=== PATIENT | female | born 1950 | race Caucasian/White ===

== ENCOUNTER 2024-05-30 12:03 | Observation (INO) | payer MEDICARE, BC ==
[~2024-05-30] VITALS: Ht 152.4 cm; Wt 92.0 kg
[2024-05-30] VITALS (33 sets, daily range): BP systolic 84–134; BP diastolic 49–108
[2024-05-30 13:05] LABS: URINE BLOOD DIPSTICK Small (NEGATIVE); URINE GLUCOSE - DIPSTICK Negative (NEGATIVE); URINE KETONE Trace mg/dL (NEGATIVE); URINE NITRITE - DIPSTICK Negative (Negative); URINE PROTEIN - DIPSTICK 100 mg/dL (NEG-TRACE)
[2024-05-30 13:20] LABS: URINE COLOR Yellow; URINE LEUK ESTERASE Moderate (NEGATIVE)
[2024-05-30 13:21] LABS: URINE BACTERIA MODERATE hpf; URINE SQUAMOUS EPITHELIAL CELL FEW EPI/hpf (0-FEW); URINE WBC 50-100 WBC/hpf (0-5)
[2024-05-30] MEDS ORDERED: SODIUM CHLORIDE 0.9% 1,000 ML IV ONE (13:35)
--- NOTE | 2024-05-30 13:44 | NUR ---
Reassessment of patient completed. No distress noted.
[2024-05-30] MEDS ORDERED: ISOVUE-300 (Iopamidol) 100 ML SDV IV ONE (14:05)
[2024-05-30] MEDS ORDERED: cefTRIAXone SODIUM 2 GM in SODIUM CHLORIDE 0.9% 100 ML IV ONE (14:05)
[2024-05-30 14:12] LABS: BASO% 0.1 % (0-3); HEMATOCRIT 38.8 % (37.0-47.0); HEMOGLOBIN 12.5 g/dl (12.0-16.0); IMMATURE GRANULOCYTES 0.5 % (0.0-5.0); LYMPH% 4.5 % (15-41); MEAN CELL VOLUME 85.7 fL CALC (80.0-100.0); MEAN CORPUSCULAR HGB 27.6 pG CALC (26.0-32.0); MEAN CORPUSCULAR HGB CONC 32.2 g/dL CAL (32.0-36.0); MONO% 5.8 % (2-13); NEUT# 14.62 thou/uL (2.00-7.15); NEUT% 89.1 % (42-76); RED BLOOD COUNT 4.53 mill/uL (4.20-5.60); RED CELL DISTRI WIDTH 15.1 % (11.5-15.5)
[2024-05-30 14:27] LABS: ALBUMIN 4.8 g/dL (3.2-5.0); BILIRUBIN, TOTAL 1.1 mg/dL (0.02-1.3); CREATININE 1.1 mg/dL (0.5-1.0); POTASSIUM 3.9 mmol/l (3.5-5.1); TOTAL PROTEIN 7.7 g/dL (6.3-8.2)
--- NOTE | 2024-05-30 14:43 | NUR ---
PT TO CT
--- NOTE | 2024-05-30 16:09 | NUR ---
PROVIDER AT BEDSIDE WITH HIS PLAN FOR ADMIT
[2024-05-30] MEDS ORDERED: MAGNESIUM HYDROXIDE 30 ML UDC PO PRN (16:35)
[2024-05-30] MEDS ORDERED: ACETAMINOPHEN 325 MG/TAB PO PRN (16:35)
[2024-05-30] MEDS ORDERED: SODIUM CHLORIDE 0.9% 1,000 ML IV PRN (16:35)
--- NOTE | 2024-05-30 16:40 | NUR ---
Reassessment of patient completed. No distress noted. NO CHANGE
--- NOTE | 2024-05-30 19:05 | NUR ---
PT REPORT RECEIVED FROM INDIA PICKARD
--- NOTE | 2024-05-30 20:00 | NUR ---
PT SITTING ON THE EDGE OF THE BED, NO DISTRESS NOTED AT THIS TIME. CALL LIGHT WITHIN REACH.
[2024-05-30] MEDS ORDERED: ENOXAPARIN SODIUM 40 MG/0.4 ML SYR SC SCH (21:00)
--- NOTE | 2024-05-30 21:02 | NUR ---
Reassessment of patient completed. No distress noted.
--- NOTE | 2024-05-30 21:21 | NUR ---
PT REPORT GIVEN TO CRISTINA DEL VALLE [facility]
--- NOTE | 2024-05-30 21:30 | NUR ---
PT TRANSPORTED TO [facility] ROOM 268 VIA WHEELCHAIR
--- NOTE | 2024-05-30 21:44 | NUR ---
05/30/2024 @2145 pt weight was 93.4 kg.
--- NOTE | 2024-05-30 21:45 | NUR ---
05/30/2024 @2145 pt vitals at admission BP 103/59 P 97 T 97.9 O2 96
--- NOTE | 2024-05-30 22:55 | NUR ---
PATIENT ARRIVED TO [facility] FLOOR APPROX 2130 VIA WHEELCHAIR. REPOSRT RECEIVED FROM ER NURSE. ASSESSMENT AND ADMISSION COMPLETED. ASSISTED TO PT TO RESTROOM. PT STATES SHE CAME IN TO THE ER BECAUSE SHE WAS RUNNING FEVER AND SHE WAS HAVING UTI SYMPTOMS THAT SHE HAD BEFORE. DENIES ANY PAIN/NAUSEA/VOMIT AT THIS MOMENT. ALERT AND ORIENTED X4. RESPS ARE EVEN AND UNALBORED. LUNGS ARE CLEAR TO AUSCULTATION. ABDOMEN IS SOFT WITH ACTIVE BOWEL SOUNDS. STRONG PERIPHERAL PULSES TO TOUCH. SKIN IS WARM DRY AND INTACT. 18 G IV TO LEFT A/C INTACT AND HEALTHY. IV FLUIDS NS PATENT AND INFUSING AT 100 CC/HR ORDERED. ORIENTED TO ROOM, CALL LIGHT AND SURROUNDINGS. INSTRCUTED TO CALL FOR ASSISTANCE NEEDED. CALL LIGHT IS WITHIN REACH AND SAFETY PRECAUTIONS IN PLACE.
[2024-05-31] VITALS (8 sets, daily range): BP systolic 116–130; BP diastolic 43–67
[2024-05-31] MEDS ORDERED: PRAVASTATIN40 MG PO (00:09)
[2024-05-31] MEDS ORDERED: LEVOTHYROXIN25 MC1 PO (00:10)
[2024-05-31] MEDS ORDERED: SERTRALINE HYD100 MG PO (00:13)
[2024-05-31] MEDS ORDERED: LISINOP/HCTZ1 TAB PO (00:29)
[2024-05-31] MEDS ORDERED: OMEPRAZOLE DR40 MG PO (00:32)
[2024-05-31] MEDS ORDERED: MULTIVITAMIN1 TA1 PO (00:33)
[2024-05-31] MEDS ORDERED: VITAMIN D325 MCG PO (00:37)
--- NOTE | 2024-05-31 01:00 | NUR ---
PT RESTING IN SUPINE POSITION WITH EYES CLOSED. BREATHING IS EVEN AND UNLABORED. IVF NS INFUSING VIA LAC AT THIS MOMENT AT 100MLS/HR. CALL LIGHT IN REACH AND SAFETY PRECAUTIONS IN PLACE.
--- NOTE | 2024-05-31 04:00 | NUR ---
PT RESTING IN BED IN SUPINE POSITION AT THIS TIME. NO DSITRESS NOTED. BREATHING IS EVEN AND UNLABORED. CALL LIGHT IN REACH AND SAFETY PRECAUTIONS IN PLACE.
[2024-05-31 05:51] LABS: BASO% 0.1 % (0-3); HEMATOCRIT 35.3 % (37.0-47.0); HEMOGLOBIN 11.1 g/dl (12.0-16.0); IMMATURE GRANULOCYTES 0.4 % (0.0-5.0); MEAN CELL VOLUME 88.9 fL CALC (80.0-100.0); MEAN CORPUSCULAR HGB CONC 31.4 g/dL CAL (32.0-36.0); MONO% 6.4 % (2-13); NEUT# 11.01 thou/uL (2.00-7.15); NEUT% 81.1 % (42-76); RED BLOOD COUNT 3.97 mill/uL (4.20-5.60); RED CELL DISTRI WIDTH 15.4 % (11.5-15.5)
[2024-05-31 05:59] LABS: ALBUMIN 3.9 g/dL (3.2-5.0); BILIRUBIN, TOTAL 0.6 mg/dL (0.02-1.3); MAGNESIUM 2.1 mg/dL (1.6-2.3); POTASSIUM 3.3 mmol/l (3.5-5.1); TOTAL PROTEIN 6.5 g/dL (6.3-8.2)
--- NOTE | 2024-05-31 07:53 | NUR ---
PT IS AOX4, RESPIRATIONS ARE EVEN AND UNLABORED ON RA, LUNGS ARE CLEAQR, BOWEL SOUNDS ARE ACTIVE, PEDALPULSES ARE PALPABLE TO TOUCH, PT DENIES PAIN AT THIS TIME.
--- NOTE | 2024-05-31 09:31 | NUR ---
REMOVED MAGALLON, PT TOLERATED WITH NO COMPLAINTS.
[2024-05-31] MEDS ORDERED: ONDANSETRON HCl 4 MG/2 ML SDV IV PRN (11:45)
--- NOTE | 2024-05-31 16:20 | NUR ---
PT RESTING COMFORTABLY AT THIS TIME WITH NO ACUTE COMPLAINTS.
--- NOTE | 2024-05-31 18:21 | NUR ---
PRN TYLENOL GIVEN FOR TEMP OF 100.1 AND HEADACHE PAIN REPORTED AT A 4 ON A 0-10 PAIN SCALE.
--- NOTE | 2024-05-31 20:00 | NUR ---
PATIENT SITTING UP ON THERECLINER WATCHING TV AT THIS MOMENT. ALERT AND ORIENTED X4. DENIES ANY PAIN, NAUSE OR VOMITING. RESPS ARE EVEN AND UNLABORED. LUNGS ARE CLEAR ALL THOUGHOUT. BOWEL SOUNDS ARE ACTIVE IN ALL QUADRANTS WITH SOFT AND NONDISTENDED ABDOMEN. STRONG PERIPHEARL PULSES TO TOUCH. RACHEL IS WARM, DRY AND INTACT. IVF NS INFUSING VIA LAC ORDERED. 18 LAC INTACT AND HEALTHY WITHOUT ANY ABNORMALITIES. PT ABLE TO MAKE NEEDS KNOWN. CALL LIGHT IS WITHIN REACH AND SAFETY PRECAUTIOSN IN PLACE.
--- NOTE | 2024-05-31 20:00 | NUR ---
PATIENT SITTING UP ON THE RECLINER WATCHING TV AT THIS MOMENT. ALERT AND ORIENTED X4. DENIES ANY PAIN, NAUSEA AND VOMITING, RESPS ARE EVEN AND UNLABORED. LUNGS ARE CLEAR ALL THROUGHOUT. BOWEL SOUNDS ARE ACTIVE IN ALL QUADRANTS WITH SOFT AND NONDISTENDED ABDOMEN. STROBG PERIPHERAL ULSES TO TOUCH. SKIN IS WARM, DRY AND INTACT. IVF NS INFUSING VIA LAC. 22 LAC INTACT AND HEALTHY WITHOUT ANY SWELLING OR ABNORMALITIES. PT ABLE TO MAKE NEEDS KNOWN. CALL LIGHT IS IN REACH AND SAFETY PRECAUTIONS IN PLACE.
--- NOTE | 2024-05-31 20:00 | NUR ---
PATIENT SITTING UP ON THE RECLINER WATCHING TV. ALERT AND ORIENTED X4. DENIES ANY PAIN WITH URINATION, DENIES ANY NAUSEA, VOMITING WELL. RESPS ARE EVEN AND UNLABORED. LUNGS ARE CLEAR ALL THROUGHOUT. BOWEL SOUNDS ARE ACTVE WITH ABDOMEN SOFT AND NONDISTENDED. STRONG PERIPHERAL PULSES TO TOUCH. SKIN IS WARM, DRY AND INTACT. IVF NORMAL SLAINE INFUSING VIA L A/C. 22 LAC INTACT AND HEALTHY WITHOUT ANY ABDNORMALITIES. PT ABLE TO MAKE NEEDS KNOW. CALL LIGHT IS WITIHN REACH AND SAFETY PRECAUTIONS IN PLACE.
--- NOTE | 2024-06-01 00:30 | NUR ---
PT RESTING IN LEFT-SIDED POSITION AT THIS TIME. RESPS ARE EVEN AND UNLABORED. NO DISTRESS NOTED. IVF NS PATENT AND INFUSING AT 100 MLS/HR ORDERED. CALL LIGHT IS WITHIN REACH AND SAFETY PRECAUTIONS IN PLACE.
[2024-06-01 04:00] VITALS: BP 125/57
--- NOTE | 2024-06-01 04:28 | NUR ---
PATIENT RESTING TO HER LEFT SIDE WITH EYES CLOSED. RESPS ARE EVEN AND UNLABORED. IVF REMAINS INFUSING ORDERED. PLAN OF CARE ONGOING. CALL LIGHT IN REACH.
[2024-06-01 04:32] VITALS: BP 125/57
[2024-06-01 05:13] LABS: BASO% 0.4 % (0-3); HEMATOCRIT 30.8 % (37.0-47.0); HEMOGLOBIN 9.8 g/dl (12.0-16.0); IMMATURE GRANULOCYTES 0.3 % (0.0-5.0); LYMPH% 16.6 % (15-41); MEAN CORPUSCULAR HGB 28.3 pG CALC (26.0-32.0); MEAN CORPUSCULAR HGB CONC 31.8 g/dL CAL (32.0-36.0); MONO% 7.7 % (2-13); NEUT# 5.27 thou/uL (2.00-7.15); RED BLOOD COUNT 3.46 mill/uL (4.20-5.60); RED CELL DISTRI WIDTH 15.2 % (11.5-15.5)
[2024-06-01 05:15] LABS: ALBUMIN 3.3 g/dL (3.2-5.0); BILIRUBIN, TOTAL 0.4 mg/dL (0.02-1.3); CREATININE 0.7 mg/dL (0.5-1.0); POTASSIUM 3.4 mmol/l (3.5-5.1); TOTAL PROTEIN 5.6 g/dL (6.3-8.2)
[2024-06-01 06:23] VITALS: BP 126/63
--- NOTE | 2024-06-01 07:30 | NUR ---
PT LAYING IN LOW FOWLERS POSITION WITH EYES OPEN. PT AXO X3. RESP CLEAR, EVEN AND UNLABORED ON ROOM AIR. SINUS, NORMAL S1,S2 HEART RYTHM. ACTIVE BOWEL SOUNDS IN ALL FOUR QUAUDRANTS. BREAKFAST DELIVERED DURING ASSESMENT, PT NOW SITTING ON EDGE OF BED EATING. PT DECLINES ANY NEEDS AT THIS TIME. PT REMINDED OF SAFETY PRECAUTIONS. BED IN LOWEST POSITION AND CALL [place]LL[place]O WITHIN REACH. PT REMINDED TO CALL IF SHE NEEDS ANYTHING.
[2024-06-01] MEDS ORDERED: POTASSIUM CHLORIDE 20 MEQ/TAB PO SCH (08:00)
[2024-06-01] MEDS ORDERED: CIPROFLOXACN500 MG PO (09:04)
--- NOTE | 2024-06-01 10:46 | NUR ---
Discharge instructions given. Patient verbalizes understanding of same. Discharged in stable condition via Ambulatory to Home with staff. All belongings sent with pt.
--- NOTE | 2024-06-03 10:43 | NUR ---
Blood culture ID results reported to Dr Singh. New orders received to have pt repeat blood culture results today and tomorrow. Spoke with pt who states she is feeling well and agrees to return to have repeat blood cultures performed. Advised pt to continue antibiotic she was sent home with. Pt verbalized understanding. Order for blood cultures delivered to registration.
== END 2024-06-01 10:47 | disposition home or self-care (01) ==
LOC: ED 12:03 → ED-I 15:58 → ED 16:22 → MS2 16:23
PROVIDERS: Family Medicine; Nurse Practitioner; Nurse Practitioner Family; ADMIT Internal Medicine; ATTEND Internal Medicine
DX: A41.9 Sepsis, unspecified organism (principal); N39.0 Urinary tract infection, site not specified; B96.1 Klebsiella pneumoniae [K. pneumoniae] as the cause of diseases classified elsewhere; I10 Essential (primary) hypertension; E03.9 Hypothyroidism, unspecified; E78.5 Hyperlipidemia, unspecified; K21.9 Gastro-esophageal reflux disease without esophagitis; Z87.440 Personal history of urinary (tract) infections
CPT/HCPCS: G0378; J0696; J1650; Q9967